=== PATIENT | male | born 1940 | race Caucasian/White ===

== ENCOUNTER 2023-06-21 12:41 | Outpatient (CLI) | payer OTHER, SELFPAY ==
--- NOTE | 2023-06-21 12:56 | USCV_ITS ---
Misbah Schafer Age: 82 Gender: M : 1940 Exam Date: 06/21/2023 13:54 Ordering Phys: Tejinder Hargrove DO Technologist: Exam Location: [facility] [place] Indication: murmur BP: 140 / 81 HR: 49 Rhythm: Sinus Technical Quality: Adequate MEASUREMENTS (Male / Female) Normal Values 2D ECHO LV Chamber Size 5.5 cm RV Chamber Size 4.2 cm LVOT Diameter 2.1 cm LV Ejection Fraction MOD 2C 30.9 % LV Ejection Fraction 2C AL 31.9 % LA Diameter 5.2 cm LA Width 4.9 cm LA Height 6.3 cm RA Width 5.4 cm RA Height 5.6 cm Aorta at Sinotubular Diameter 2.3 cm M-MODE Aortic Annulus Diameter 2.6 cm LA Ao Ratio MM 2.4 MV E Point Septal Separation 0.7 cm DOPPLER AV Peak Velocity 332.0 cm/s LVOT Peak Velocity 82.0 cm/s AV Area Cont Eq vti 1.1 cm squared AV Area Cont Eq pk 0.8 cm squared MV Area PHT 3.5 cm squared Mitral E to A Ratio 1.0 MV E' Velocity 40.5 cm/s Mitral E to MV E' Ratio 11.6 Mitral E to LV E' Lateral Ratio 12.4 Mitral E to LV E' Septal Ratio 10.9 TR Peak Velocity 253.0 cm/s TR Peak Gradient 25.6 mmHg TV Peak E Velocity 98.0 cm/s Right Atrial Pressure 3.0 mmHg Pulmonary Artery Systolic Pressu 28.6 mmHg PV Peak Velocity 129.0 cm/s FINDINGS Left Ventricle Left ventricle is normal in size. LV systolic function is low normal with EF of 50 to 55%. No regional wall motion normalities are seen. Right Ventricle Normal in size and function Right Atrium Dilated Left Atrium Dilated Mitral Valve Structurally normal mitral valve. Mild mitral regurgitation Aortic Valve Aortic valve is thickened and calcified. Mild aortic regurgitation. Moderate aortic stenosis with aortic valve area of 1.15 cm squared and mean gradient across aortic valve of 21 mmHg. Tricuspid Valve Mild tricuspid regurgitation. Pulmonary artery systolic pressure is normal. Pulmonic Valve Not well-visualized Pericardium Normal Aorta Normal in size IVC Not well-visualized CONCLUSIONS LV systolic function is low-normal with EF of 50 to 55%. Biatrial dilation Mild mitral regurgitation Aortic valve is thickened and calcified. Moderate aortic stenosis. Mild aortic regurgitation Mild tricuspid regurgitation No comparison studies are available. Bhanu Barcenas MD (Electronically Signed) Final Date: 03 July 2023 14:27 S
== END 2023-06-21 12:42 | disposition home or self-care (01) ==
PROVIDERS: Visit Provider Emergency Medicine Emergency Medical Services
DX: R01.1 Cardiac murmur, unspecified (principal); I34.0 Nonrheumatic mitral (valve) insufficiency; I35.2 Nonrheumatic aortic (valve) stenosis with insufficiency; I07.1 Rheumatic tricuspid insufficiency
CPT/HCPCS: 93306

== ENCOUNTER → 2023-10-20 14:23 | Outpatient (BNVA) | payer OTHER, SELFPAY | PROVIDERS: Referring Provider Emergency Medicine Emergency Medical Services; Visit Provider Internal Medicine Cardiovascular Disease | DX: R07.9 Chest pain, unspecified (principal); I35.0 Nonrheumatic aortic (valve) stenosis; I10 Essential (primary) hypertension; Z86.718 Personal history of other venous thrombosis and embolism; R06.09 Other forms of dyspnea; Z87.891 Personal history of nicotine dependence; R00.1 Bradycardia, unspecified; I45.9 Conduction disorder, unspecified | CPT/HCPCS: 93005; 99204 ==

== ENCOUNTER 2023-11-02 10:11 | Outpatient (CLI) | payer OTHER, SELFPAY ==
[2023-11-02 10:45] VITALS: BMI 27.7
--- NOTE | 2023-11-02 10:52 | ECG_ITS ---
[facility] Test Date: 2023-11-02 Pat Name: Misbah Schafer Department: Room: Gender: Male [employer]: : 1940 Requested By: Brenden Jama Order Number: [id number] Mary MD: Brenden Jama M.D. Interpretive Statements NAME OF STUDY: LEXISCAN SESTAMIBI STRESS TEST INDICATION: s; Shortness of Breath RESULTS TO [facility]I [facility] PROCEDURE: At the baseline, the EKG revealed sinus bradycardia with a right bundle branch block pattern.. The baseline heart was 58 bpm with a blood pressue of 127/73 mm of Hg Lexiscan was infused over a period of 20 seconds. A total of 0.4 milligrams of Lexiscan was infused. The stress phase was continued for a total of 5 minutes. Heart rate at the end of the stress phase was 70 bpm with a blood pressure 115/66 mm of Hg. The EKG at the peak infusion revealed no significant changes. Sestamibi was injected 20 seconds after the Lexiscan infusion. Heart rate at the end of the recovery phase was 68 bpm with a blood pressure of 118/71 mm of Hg. CONCLUSION: 1. No significant EKG changes with the LexiScan infusion 2. No LexiScan induced chest pain or cardiac arrhythmia 3. Normal blood pressure and heart rate response 4. Sestamibi/sestamibi perfusion scan pending; see separate report. Electronically Signed On 11-05-2023 9:24:46 DESOLDERER by Brenden Jama M.D. [id number]
--- NOTE | 2023-11-02 10:53 | NMCV_ITS ---
NM baylee perf SPECT r/s* [id number] Misbah Schafre Age: 83 Gender: M : 1940 Exam Date: 11/02/2023 11:00 Ordering Phys: Brenden Jama MD ([email or web address]) Technologist: REBECA Hooks Exam Location: [facility] Indications: CORONARY ANGIOPLASTY STATUS STRESS TEST Please see separate stress test report in [facility] for full findings IMAGE PROTOCOL Rest/Stress 1 Lexiscan Day Radiopharmaceutical Dose (mCi) Administration Site Administered by Rest: Tc-99m 11.0 IV REBECA Locke Sestamibi Stress:Tc-99m 32.2 IV REBECA Locke Sestamibi Rest: 02-Nov-2023 60 Discovery 630 Stress: 02-Nov-2023 30 Discovery 630 0.4mg Lexiscan. Images obtained in supine and prone position. SPECT RESULTS Technical Quality: Excellent Raw Data Analysis: Normal Image Corrections: No attenuation or motion correction applied Summed Stress Score: 5 Summed Rest Score: 7 Summed Difference Score: 1 PERFUSION FINDINGS Small area of moderately decreased tracer uptake was noted in the apical anterior, apical septal and LV apex. Subtle area of reversibility was noted in the apical anterior region, with the supine imaging. However the prone imaging, no significant reversibility was noted. FUNCTIONAL RESULTS (calculated via Gated SPECT) Stress Image LV EF (%): 56 Stress EDV (mL):124 TID: 1.04 Stress ESV (mL):55 FUNCTIONAL FINDINGS: Segmental wall motion analysis revealing no gross wall motion abnormalities. LV cavity was found to be mildly dilated IMPRESSIONS 1. Myocardial perfusion imaging revealing small area of persistent decreased tracer uptake involving the apical anterior, apical septal and LV apex. Subtle area of reversibility in the apical anterior region may suggest ischemia in the distribution of the distal left anterior descending artery. However because of the inconsistency with the prone imaging, the reliability of this finding is compromised. 2. Normal LV ejection fraction of 56%. 3. LV wall motion analysis revealing no gross wall motion abnormalities. 4. Mildly dilated LV cavity No similar previous studies are available for comparison Dr Brenden Jama MD FAC (Electronically Signed) Final Date: 03 November 2023 11:11 S
[2023-11-02] MEDS: regadenoson 0.4 Mg/5 ml Syringe IVP (11:36)
[2023-11-02 12:18] VITALS: BP 132/84; PULSE 82
== END 2023-11-02 10:12 | disposition home or self-care (01) ==
LOC: CDL 10:12
PROVIDERS: Visit Provider Internal Medicine Cardiovascular Disease
DX: R06.02 Shortness of breath (principal); Z98.61 Coronary angioplasty status; R93.1 Abnormal findings on diagnostic imaging of heart and coronary circulation
CPT/HCPCS: 36415; 78452; 93017; 96374; A9500; J2785

== ENCOUNTER → 2024-01-19 10:40 | Outpatient (BNVA) | payer OTHER, SELFPAY | PROVIDERS: Visit Provider Nurse Practitioner Family | DX: I35.0 Nonrheumatic aortic (valve) stenosis (principal); I10 Essential (primary) hypertension; Z87.891 Personal history of nicotine dependence | CPT/HCPCS: 99214 ==

== ENCOUNTER 2024-07-12 10:44 | Outpatient (CLI) | payer OTHER, SELFPAY ==
--- NOTE | 2024-07-12 11:15 | USCV_ITS ---
Misbah Schafer Age: 83 Gender: M : 1940 Exam Date: 07/12/2024 11:14 Ordering Phys: Victorina Livingston Technologist: CT Exam Location: [facility] [place] Indication: as BP: / HR: Rhythm: Sinus Technical Quality: Adequate MEASUREMENTS (Male / Female) Normal Values FINDINGS Left Ventricle Normal left ventricular cavity size. Normal left ventricular systolic function. Left ventricular ejection fraction is estimated at 60 %. Grade I/IV diastolic dysfunction (abnormal relaxation filling pattern), normal to mildly elevated filling pressures. Right Ventricle The right ventricle is normal in size and function. Right Atrium The right atrium is normal in size. Left Atrium Moderately increased left atrial size. Mitral Valve Moderately thickened mitral valve. No mitral valve stenosis. Moderate mitral valve regurgitation. Aortic Valve Severe aortic valve calcification. Moderate aortic valve stenosis with peak and mean gradient across the aortic valve 43 and 21 mmHg, aortic valve area by continued equation is 1.3 cm squaredmild aortic valve regurgitation. Tricuspid Valve Mild tricuspid valve regurgitation. Pulmonic Valve Structurally normal pulmonic valve without significant stenosis. There is no pulmonic regurgitation. Pericardium Normal pericardium without effusion. Aorta Normal ascending aorta dimension. IVC The inferior vena cava appears normal. CONCLUSIONS Normal left ventricular cavity size. Normal left ventricular systolic function. Left ventricular ejection fraction is estimated at 60 %. Grade I/IV diastolic dysfunction (abnormal relaxation filling pattern), normal to mildly elevated filling pressures. Severe aortic valve calcification. Moderate aortic valve stenosis with peak and mean gradient across the aortic valve 43 and 21 mmHg, aortic valve area by continued equation is 1.3 cm squaredmild aortic valve regurgitation. Moderately increased left atrial size. Moderately thickened mitral valve. No mitral valve stenosis. Moderate mitral valve regurgitation There is no pericardial effusion. Right atrial pressure is around 5 mm of mercury. Raimundo Osorio MD (Electronically Signed) Final Date: 15 July 2024 14:33 S
== END 2024-07-12 10:45 | disposition home or self-care (01) ==
LOC: RAD 10:45
PROVIDERS: PCP Family Medicine; Visit Provider Nurse Practitioner Family
DX: I35.0 Nonrheumatic aortic (valve) stenosis (principal); I51.7 Cardiomegaly; I34.81 Nonrheumatic mitral (valve) annulus calcification; I34.0 Nonrheumatic mitral (valve) insufficiency; I50.30 Unspecified diastolic (congestive) heart failure
CPT/HCPCS: 93306